=== PATIENT | male | born 1960 | race Caucasian/White ===

== ENCOUNTER 2016-12-20 10:04 | Day surgery (SDC) | payer OTHER ==
[~2016-12-20] VITALS: Ht 177.8 cm; Wt 118.0 kg
[~2016-12-20 10:04] MED LIST: ACETAMINOPHEN325 MG PO; ASPIRIN EC81 MG PO; ATIVAN-DPS0.5 MG PO; CELEBREX100 MG PO; MAALOX DPS30 ML PO; NORVASC DPS10 MG PO; SINGULAIR10 MG PO; SYMBICORT80 MCG/6.9 IH; XOPENEX HFA15 GM IH
--- NOTE | 2016-12-22 10:11 | OR ---
ADMIT: 12/20/2016 RM/LOC: [facility] MR#: [id number] [address] [id number] VICKI GARCIAIG Trevor [address] [place] [address] Operative/Delivery Room Report SEX: M AGE: 56 : 1960 SURGERY DATE: 12/20/2016 SURGEON: Gen Ramsey MD PREOPERATIVE DIAGNOSIS: Incarcerated umbilical hernia. POSTOPERATIVE DIAGNOSIS: Incarcerated umbilical hernia. PROCEDURE: Repair of incarcerated umbilical hernia with 4.3 cm Ventralex mesh. SPEEDER FRAME TENDER: CRISTIN Sharp. His assistance was necessary for retraction of tissue. ANESTHESIA: General. ESTIMATED BLOOD LOSS: 10 mL. DESCRIPTION OF PROCEDURE: The patient was taken to the operating room and placed supine on the operating room table. General anesthesia was established. The abdomen was prepped and draped in the standard surgical fashion. A curvilinear infraumbilical incision was made in the skin. Dissection proceeded through the subcutaneous tissue to the hernia sac. This was carefully dissected away from the overlying umbilical skin. The sac was then excised at the fascial margins. The incarcerated content which appeared to be intraabdominal fat was reduced successfully. The fascial margins were then cleaned of overlying fatty tissue. The defect measured just over 1 cm in diameter. Because of his need for heavy lifting capabilities, I did elect to perform mesh repair. A 4.3 cm Ventralex mesh was placed intra-abdominally. This provided good overlap of the defect. This was secured in a circumferential manner with 0 silk suture in a transfascial fixation. The umbilical skin was then tacked to the repair site for recreation of the umbilicus with 2-0 Vicryl suture. Deep tissue was closed with 2-0 Vicryl suture. Skin edges were approximated with 4-0 Monocryl in a subcuticular fashion and Dermabond. Local anesthetic was injected and the dressing was applied. Sponge, needle, and instrument counts were correct at the end of the case. The patient tolerated the procedure well and transferred to the recovery area in stable condition. Gen Ramsey MD/ amy JOB #: [id number] CC: Gen Ramsey, Attending Physician Guillermo Gatica, Family Physician
== END 2016-12-20 15:30 | disposition home or self-care (01) ==
LOC: SSS 10:04
PROC: 0WUF0JZ Supplement Abdominal Wall with Synthetic Substitute, Open Approach (ICD-10-PCS; principal; 2016-12-20)
DX: K42.0 Umbilical hernia with obstruction, without gangrene (principal); J45.909 Unspecified asthma, uncomplicated; E66.9 Obesity, unspecified; Z98.890 Other specified postprocedural states; Z79.82 Long term (current) use of aspirin; Z88.0 Allergy status to penicillin; Z88.1 Allergy status to other antibiotic agents; Z88.6 Allergy status to analgesic agent; Z88.8 Allergy status to other drugs, medicaments and biological substances; Z79.899 Other long term (current) drug therapy; Z87.891 Personal history of nicotine dependence; Z68.36 Body mass index [BMI] 36.0-36.9, adult